=== PATIENT | female | born 1960 | race Caucasian/White ===

== ENCOUNTER 2017-02-07 23:08 | Emergency (ER) | payer OTHER, BC ==
[2017-02-07 23:28] VITALS: O2SAT 96
--- NOTE | 2017-02-08 01:04 | C.PDOC ---
History Of Present Illness 56 y/o female comes in c/o pain to the left shoulder and bilateral legs s/p fall [employer]. Patient notes that she tripped on stairs at work and tried to grab on to the hand rail to break her fall, but hit the left side of her body and legs on the side of the rails. Denies complete fall, head injury, LOC, weakness, numbness, or any other complaints. Time Seen by Provider: 02/07/17 23:40 Chief Complaint (Nursing): Back Pain History Per: Patient History/Exam Limitations: no limitations Onset/Duration Of Symptoms: Hrs Current Symptoms Are (Timing): Still Present Quality Of Discomfort: "Pain" Severity: Mild Exacerbating Factor(s): Movement Recent travel outside of the [place]: No Additional History Per: Patient Past Medical History Reviewed: Historical Data, Nursing Documentation, Vital Signs Vital Signs: Last Vital Signs Temp 98 F 02/08/17 01:42 Pulse 72 02/08/17 01:42 Resp 18 02/08/17 01:42 BP 131/79 02/08/17 01:42 Pulse Ox 96 02/08/17 01:55 - Medical History PMH: Back Problems Surgical History: Back Surgery (bulging discs) Family History: States: Unknown Family Hx - Social History Hx Tobacco Use: No Hx Alcohol Use: No Hx Substance Use: No - Immunization History Hx Tetanus Toxoid Vaccination: No Hx Influenza Vaccination: No Hx Pneumococcal Vaccination: No Review Of Systems Except As Marked, All Systems Reviewed And Found Negative. Constitutional: Negative for: Other (Head injury) Musculoskeletal: Positive for: Shoulder Pain (Left), Leg Pain (Bilateral legs) Neurological: Negative for: Weakness, Numbness, Other (LOC) Physical Exam - Physical Exam Appears: Non-toxic, No Acute Distress Skin: Warm, Dry Head: Atraumatic, Normacephalic Eye(s): bilateral: Normal Inspection Chest: Symmetrical, No Tenderness Respiratory: Normal Breath Sounds Gastrointestinal/Abdominal: Normal Exam, No Tenderness Back: Normal Inspection, No CVA Tenderness, No Vertebral Tenderness, No Paraspinal Tenderness Extremity: Normal ROM, Tenderness (Tenderness to the left shoulder on motion and palpation.), Capillary Refill (<2secs), No Deformity, No Swelling, Other ( Superficial excoriations on the right tibial levine are and left ankle.) Extremity: Bilateral: Normal Color And Temperature Pulses: Left Radial: Normal, Right Radial: Normal, Left Dorsalis Pedis: Normal, Right Dorsalis Pedis: Normal Neurological/Psych: Oriented x3, Normal Speech, Normal Cognition, Normal Motor, Normal Sensation Gait: Steady ED Course And Treatment O2 Sat by Pulse Oximetry: 96 (RA) Pulse Ox Interpretation: Normal Progress Note: Impression: 56 y/o female comes in c/o pain to the left shoulder and bilateral legs s/p fall [employer]. Plans: XRAY left shoulder. XRAY left shoulder : No fractures or dislocation. Pt refused pain meds. Sling was applied by RN and patient was instructed to follow up with PMD for further evaluation and return if symptoms worsens. Disposition Counseled Patient/Family Regarding: Diagnosis, Need For Followup, Rx Given - Disposition Disposition: HOME/ ROUTINE Disposition Time: 01:30 Condition: STABLE Additional Instructions: Please follow up with PMD TYlenol or advil for pain or current pain meds Return to ER if worse Instructions: Contusion in Adults (ED) Forms: [facility] (Ecuadorean), Work Excuse - Clinical Impression Clinical Impression: Multiple contusions, Left shoulder strain - Scribe Statement The provider has reviewed the documentation as recorded by the Scribe Gayle howe All medical record entries made by the Radhaibe were at my direction and personally dictated by me. I have reviewed the chart and agree that the record accurately reflects my personal performance of the history, physical exam, medical decision making, and the department course for this patient. I have also personally directed, reviewed, and agree with the discharge instructions and disposition.
[2017-02-08 01:58] VITALS: BP 131/79; PULSE 72; RESP 18; TEMP 98
--- NOTE | 2017-02-08 08:44 | RAD ---
PROCEDURE: Radiographs of the Left Shoulder HISTORY: pain, s/p fall COMPARISON: No prior. FINDINGS: BONES: Thoracic spondylosis No fracture. JOINTS: . Glenohumeral and acromioclavicular joints preserved. No left shoulder osteoarthritis. SOFT TISSUES: Normal. OTHER FINDINGS: None. IMPRESSION: Normal radiographs of the left shoulder. Incidental thoracic spondylosis
== END 2017-02-08 01:42 | disposition home or self-care (01) ==
LOC: C.ER 23:08
DX: S46.912A Strain of unspecified muscle, fascia and tendon at shoulder and upper arm level, left arm, initial encounter (principal); S90.02XA Contusion of left ankle, initial encounter; S80.11XA Contusion of right lower leg, initial encounter; W10.8XXA Fall (on) (from) other stairs and steps, initial encounter; Y93.89 Activity, other specified; Y92.89 Other specified places as the place of occurrence of the external cause; Y99.8 Other external cause status